=== PATIENT | male | born 1970 | race Caucasian/White ===

== ENCOUNTER 2018-09-09 09:50 | Emergency (ER) | payer BC ==
[~2018-09-09] VITALS: Ht 177.8 cm; Wt 86.2 kg
[~2018-09-09 09:50] MED LIST: AMPH30TA2 PO; CIPR-226 PO; CIPR500T78 PO; HUMARA SQ; INSASP10V SQ; METH20TA PO; ONDA4TAB8 PO; PHEN200T27 PO; SRTR100T PO; SUBUTEX PO; TORADOL PO
[2018-09-09] MEDS ORDERED: NS IV 1000 ML 1,000 ML IV SCH (10:24)
[2018-09-09] MEDS ORDERED: PROCHLORPERAZINE 10 MG/2ML INJ (COMPAZINE) IV ONE (10:30)
[2018-09-09] MEDS ORDERED: KETOROLAC 30 MG/ML VIAL IVP ONE (10:30)
[2018-09-09] MEDS ORDERED: diphenhydrAMINE 50 MG/ML INJ (BENADRYL) IVP ONE (10:30)
[2018-09-09] MEDS ORDERED: ORPHENADRINE 60 MG/2 ML (NORFLEX) AMP IM ONE (10:30)
[2018-09-09] MEDS ORDERED: ACETAMINOPHEN 325 MG TABLET PO ONE (10:30)
--- NOTE | 2018-09-09 11:41 | Diagnostic Imaging Report ---
PROCEDURE: CT head without contrast. TECHNIQUE: Multiple contiguous axial images were obtained through the brain without the use of intravenous contrast. Auto Exposure Controls were utilized during the CT exam to meet ALARA standards for radiation dose reduction. INDICATION: Lethargy and associated neck pain. FINDINGS: Ventricles and sulci are within normal limits for size. There is no intracranial hemorrhage identified. There is no abnormal mass effect or shift of midline structures. IMPRESSION: Unremarkable CT of the head. Dictated by: Dictated on workstation # [id number]
--- NOTE | 2018-09-09 11:42 | Diagnostic Imaging Report ---
INDICATION: Cough. COMPARISON: None. FINDINGS: Frontal and lateral radiographic views of the chest were obtained and show patchy bibasilar opacities, right greater than left. There is no large effusion or pneumothorax. Cardiac silhouette and pulmonary vasculature are within normal limits. Osseous structures show no gross acute abnormalities. IMPRESSION: 1. Bibasilar alveolar opacities concerning for pneumonia, right greater than left. Followup to resolution is recommended. Dictated by: Dictated on workstation # [id number]
[2018-09-09 11:43] LABS: CHLORIDE 96 MMOL/L (98-107); POTASSIUM 3.6 MMOL/L (3.6-5.0); SODIUM 138 MMOL/L (135-145)
[2018-09-09 11:44] LABS: ALANINE AMINOTRANSFERASE 28 U/L (0-55); ALBUMIN 3.9 GM/DL (3.2-4.5); ALKALINE PHOSPHATASE 51 U/L (40-136); BILIRUBIN,TOTAL 0.7 MG/DL (0.1-1.0); BUN/CREATININE RATIO 9; CALCIUM 8.9 MG/DL (8.5-10.1); CREATININE SERUM 0.96 MG/DL (0.60-1.30); GFR ESTIMATED > 60; GLUCOSE 126 MG/DL (70-105); TOTAL PROTEIN 6.7 GM/DL (6.4-8.2)
[2018-09-09 11:45] LABS: CARBON DIOXIDE 33 MMOL/L (21-32)
[2018-09-09 11:46] LABS: BASOPHILS % (AUTO) 0 % (0-10); EOSINOPHILS % (AUTO) 0 % (0-10); HEMATOCRIT 40 % (40-54); HEMOGLOBIN 13.7 G/DL (13.3-17.7); LYMPHOCYTES # (AUTO) 0.8 X 10^3 (1.0-4.0); LYMPHOCYTES % (AUTO) 13 % (12-44); MEAN CORPUSCULAR HEMOGLOBIN 30 PG (25-34); MEAN CORPUSCULAR HGB CONC 34 G/DL (32-36); MEAN CORPUSCULAR VOLUME 88 FL (80-99); MONOCYTES % (AUTO) 14 % (0-12); NEUTROPHILS % (AUTO) 73 % (42-75); PLATELET COUNT 191 10^3/uL (130-400); RED CELL DISTRIBUTION WIDTH 12.1 % (10.0-14.5); WHITE BLOOD COUNT 6.8 10^3/uL (4.3-11.0)
--- NOTE | 2018-09-09 11:46 | ED General ---
General Chief Complaint: General Problems/Pain Stated Complaint: FALL; FEVER; NECK PAIN; NAUSEA; AMS Nursing Triage Note: Has had vague symptoms for the past two weeks of increased lethargy, sleepiness and neck pain. Has had a low fever for the past two days. Temp was 100.1 at home. reports that he seems to be confused and has been "blacking out" frequently. Has hx of narcolepsy. Nursing Sepsis Screen: No Definite Risk History of Present Illness Date Seen by Provider: Sep 09, 2018 Time Seen by Provider: 09:50 Initial Comments The patient is a 48-year-old male with a history of insulin-dependent diabetes, narcolepsy on Vyvanse, history of prior narcotic abuse on daily buprenorphine, Crohn's disease on Humira until about 5-6 months ago when this was discontinued due to some dermatologic issues. Patient presents with acute worsening of the number of chronic issues. Patient and his state that over at least the last 6 months, that he has had persistent waxing and waning daytime fatigue and lethargy which eventually became so severe that he was placed on Vyvanse by his primary care physician and ultimately lost his job as he could not stay awake at work. More recently, over the past few weeks, he has started to have additional seemingly constitutional symptoms including intermittent gradual-onset headaches, dyspnea with exertion, lightheadedness with ambulation with occasional syncopal episodes not sustaining any injury, episodes of mild confusion and significant malaise, along with a persistent nonproductive cough. states that the patient has lost significant weight without attempting to. Patient has reportedly been to see his primary care physician a number of times for this issue and has had testing done which has not been revealing in the past. His symptoms have primarily been attributed to depression in the recent past as per his . All of the patient's symptoms have continued to get worse and most recently he has noticed some intermittent fevers at home, although is afebrile today in the emergency department. Patient has a flat affect and appears quite fatigued. He denies vomiting, hematemesis, hematochezia, melena, mik chest pain, abdominal pain, flank pain, back pain, dysuria or hematuria, diarrhea or constipation. Allergies and Home Medications Allergies Coded Allergies: No Known Drug Allergies (Verified , 09/09/18) Home Medications Amphet Asp/Amphet/D-Amphet 30 Mg Tablet, 30 MG PO BID, (Reported) Ciprofloxacin HCl 250 Mg Tablet, 250 MG PO BID Prescribed by: RANDY WELLINGTON on 06/17/14 1253 Insulin Human Lispro 100 U/Ml Vial, 1 UNITS SQ PRN PRN for ELEVATED CBG, (Reported) Ondansetron 4 Mg/Udtablet Tab.rapdis, 4 MG PO Q8H PRN for NAUSEA, (Reported) Phenazopyridine Hcl 200 Mg Tablet, 1 EACH PO TID PRN Prescribed by: RANDY WELLINGTON on 06/17/14 1253 Sertraline Hcl 100 Mg Tablet, 1 TAB PO DAILY, (Reported) [Humara] , 40 MG SQ BI-WEEKLY, (Reported) [Subutex] , 8 MG PO DAILY, (Reported) [Toradol] , 60 MG PO Q6H PRN for PAIN, (Reported) Patient Home Medication List Home Medication List Reviewed: Yes Review of Systems Review of Systems Constitutional: see HPI All Other Systems Reviewed Negative Unless Noted: Yes Past Qqmdgsv-Biajdi-Uxkbzx Hx Past Med/Social Hx: Reviewed Nursing Past Med/Soc Hx Patient Social History Alcohol Use: Denies Use Recreational Drug Use: No 2nd Hand Smoke Exposure: No Recent Foreign Travel: No Contact w/Someone Who Travel: No Recent Infectious Disease Expo: No Recent Hopitalizations: No Immunizations Up To Date Date of Pneumonia Vaccine: Jan 05, 2013 Date of Influenza Vaccine: Jan 05, 2013 Seasonal Allergies Seasonal Allergies: No Past Medical History Surgeries: Yes (LEFT STONE; hand surgery) Gallbladder, Orthopedic Respiratory: No Cardiac: Yes High Cholesterol Neurological: Yes (narcolepsy) Reproductive Disorders: No Sexually Transmitted Disease: No Gastrointestinal: Yes (bleeding ulcer, CROHNS) Musculoskeletal: No Endocrine: Yes Cancer: No Psychosocial: Yes Depression Integumentary: No Blood Disorders: No Family Medical History Reviewed Nursing Family Hx Physical Exam Vital Signs Vital Signs - First Documented 09/09/18 09:59 Temp 97.6 Pulse 70 Resp 12 B/P (MAP) 113/62 (79) Pulse Ox 95 Capillary Refill : Less Than 3 Seconds Height, Weight, BMI Height: 5'10.00" Weight: 190lbs. oz. 86.907995zm; BMI Method:Stated General Appearance: No Apparent Distress Comments This is a middle-aged male appearing mildly ill, but nontoxic and in no significant distress. Head is normocephalic and atraumatic. Neck is supple and with some mild tenderness at the base of the neck without any significant pain with full ranging of the neck and without any meningismus, oropharynx is mildly tacky, no cervical LAD appreciated, lungs with crackles noted bilaterally, worse in the bilateral bases. There is good air movement bilaterally and the patient is speaking comfortably in full sentences and not using accessory musculature to breathe. There is a normal S1 and S2 without murmurs, rubs or gallops and capillary refill is appropriate, less than 2 seconds globally. Abdomen is soft, nontender nondistended. Skin is warm and dry without cyanosis, clubbing or edema. Psychiatrically, the patient is alert and has a very flat affect. From a neurologic standpoint, cranial nerves II-XII are intact and there are no lateralizing deficits noted. Speech is normal, playing which is normal. Coordination is normal. There is no dysmetria with aztqqg-lz-nbqm or nuck-sz-quqe bilaterally. Strength is 5 out of 5 in all joints of bilateral upper and lower extremities. Sensation is intact to light touch in bilateral upper and lower extremities. The patient ambulates with a narrow, steady gait. He is alert and oriented 4. Progress/Results/Core Measures Suspected Sepsis Recent Fever Within 48 Hours: Yes Infection Criteria Present: None New/Unexplained Altered Menta: No Sepsis Screen: No Definite Risk SIRS Temperature:97.6 Pulse: 70 Respiratory Rate: 12 Laboratory Tests 09/09/18 10:56: White Blood Count 6.8 Blood Pressure 113 /62 Mean: 79 Laboratory Tests 09/09/18 10:56: Creatinine 0.96, Platelet Count 191, Total Bilirubin 0.7 Results/Orders Lab Results Laboratory Tests Test 09/09/18 10:56 09/09/18 11:39 Range/Units White Blood Count 6.8 4.3-11.0 10^3/uL Red Blood Count 4.52 4.35-5.85 10^6/uL Hemoglobin 13.7 13.3-17.7 G/DL Hematocrit 40 40-54 % Mean Corpuscular Volume 88 80-99 FL Mean Corpuscular Hemoglobin 30 25-34 PG Mean Corpuscular Hemoglobin Concent 34 32-36 G/DL Red Cell Distribution Width 12.1 10.0-14.5 % Platelet Count 191 130-400 10^3/uL Mean Platelet Volume 9.0 7.4-10.4 FL Neutrophils (%) (Auto) 73 42-75 % Lymphocytes (%) (Auto) 13 12-44 % Monocytes (%) (Auto) 14 H 0-12 % Eosinophils (%) (Auto) 0 0-10 % Basophils (%) (Auto) 0 0-10 % Neutrophils # (Auto) 5.0 1.8-7.8 X 10^3 Lymphocytes # (Auto) 0.8 L 1.0-4.0 X 10^3 Monocytes # (Auto) 1.0 0.0-1.0 X 10^3 Eosinophils # (Auto) 0.0 0.0-0.3 10^3/uL Basophils # (Auto) 0.0 0.0-0.1 10^3/uL Sodium Level 138 135-145 MMOL/L Potassium Level 3.6 3.6-5.0 MMOL/L Chloride Level 96 L 98-107 MMOL/L Carbon Dioxide Level 33 H 21-32 MMOL/L Anion Gap 9 5-14 MMOL/L Blood Urea Nitrogen 9 7-18 MG/DL Creatinine 0.96 0.60-1.30 MG/DL Estimat Glomerular Filtration Rate > 60 BUN/Creatinine Ratio 9 Glucose Level 126 H 70-105 MG/DL Calcium Level 8.9 8.5-10.1 MG/DL Corrected Calcium 9.0 8.5-10.1 MG/DL Total Bilirubin 0.7 0.1-1.0 MG/DL Aspartate Amino Transf (AST/SGOT) 26 5-34 U/L Alanine Aminotransferase (ALT/SGPT) 28 0-55 U/L Alkaline Phosphatase 51 40-136 U/L Troponin T 15 <=15 NG/L Pro-B-Type Natriuretic Peptide 162.1 H <75.0 PG/ML Total Protein 6.7 6.4-8.2 GM/DL Albumin 3.9 3.2-4.5 GM/DL Serum Alcohol < 10 <10 MG/DL Urine Color MALAIKA H Urine Clarity CLEAR Urine pH 6.0 5-9 Urine Specific Diagonal >=1.030 1.016-1.022 Urine Protein 1+ H NEGATIVE Urine Glucose (UA) NEGATIVE NEGATIVE Urine Ketones 1+ H NEGATIVE Urine Nitrite NEGATIVE NEGATIVE Urine Bilirubin 2+ H NEGATIVE Urine Urobilinogen 1.0 NORMAL MG/DL Urine Leukocyte Esterase NEGATIVE NEGATIVE Urine RBC (Auto) NEGATIVE NEGATIVE Urine RBC NONE /HPF Urine WBC 2-5 /HPF Urine Squamous Epithelial Cells 5-10 /HPF Urine Crystals PRESENT H /LPF Urine Amorphous Sediment FEW DAYAN URATES H /LPF Urine Bacteria NEGATIVE /HPF Urine Casts NONE /LPF Urine Mucus LARGE H /LPF Urine Culture Indicated NO Urine Opiates Screen NEGATIVE NEGATIVE Urine Oxycodone Screen NEGATIVE NEGATIVE Urine Methadone Screen NEGATIVE NEGATIVE Urine Propoxyphene Screen NEGATIVE NEGATIVE Urine Barbiturates Screen NEGATIVE NEGATIVE Ur Tricyclic Antidepressants Screen NEGATIVE NEGATIVE Urine Phencyclidine Screen NEGATIVE NEGATIVE Urine Amphetamines Screen POSITIVE H NEGATIVE Urine Methamphetamines Screen NEGATIVE NEGATIVE Urine Benzodiazepines Screen NEGATIVE NEGATIVE Urine Cocaine Screen NEGATIVE NEGATIVE Urine Cannabinoids Screen NEGATIVE NEGATIVE My Orders Orders - DONNA TREVINO MD Cbc With Automated Diff (09/09/18 10:24) Comprehensive Metabolic Panel (09/09/18 10:24) Troponin T (09/09/18 10:24) Probnp Fs (09/09/18 10:24) Chest Pa/Lat (2 View) (09/09/18 10:24) Ekg Tracing (09/09/18 10:24) Ua Culture If Indicated (09/09/18 10:24) Drug Screen Stat (Urine) (09/09/18 10:24) Alcohol (09/09/18 10:24) Ct Head Wo (09/09/18 10:24) Ed Iv/Invasive Line Start (09/09/18 10:24) Ns Iv 1000 Ml (Sodium Chloride 0.9%) (09/09/18 10:24) Diphenhydramine Injection (Benadryl Inje (09/09/18 10:30) Prochlorperazine Injection (Compazine In (09/09/18 10:30) Orphenadrine Injection (Norflex Injectio (09/09/18 10:30) Ketorolac Injection (Toradol Injection) (09/09/18 10:30) Acetaminophen Tablet/Caplet (Tylenol T (09/09/18 10:30) Creatine Kinase (09/09/18 10:56) Free T4 (Free Thyroxine) (09/09/18 10:56) Thyroid Stimulating Hormone (09/09/18 10:56) Sputum Culture (09/09/18 12:01) Blood Culture (09/09/18 12:01) Blood Culture (09/09/18 12:01) Medications Given in ED Current Medications Medications Dose Ordered Sig/Oziel Route Start Time Stop Time Status Last Admin Dose Admin Acetaminophen 975 mg ONCE ONCE PO 09/09/18 10:30 09/09/18 10:31 DC 09/09/18 11:09 975 MG Diphenhydramine HCl 12.5 mg ONCE ONCE IVP 09/09/18 10:30 09/09/18 10:31 DC 09/09/18 11:08 12.5 MG Ketorolac Tromethamine 30 mg ONCE ONCE IVP 09/09/18 10:30 09/09/18 10:31 DC 09/09/18 11:09 30 MG Prochlorperazine Edisylate 10 mg ONCE ONCE IV 09/09/18 10:30 09/09/18 10:31 DC 09/09/18 11:09 10 MG Vital Signs/I&O 09/09/18 09:59 Temp 97.6 Pulse 70 Resp 12 B/P (MAP) 113/62 (79) Pulse Ox 95 Capillary Refill : Less Than 3 Seconds Blood Pressure Mean: 79 Progress Note : Time: 12:22 Progress Note Results of large workup are as above, generally without significant evidence of acute process aside from mild BNP elevation as well as fairly marked bibasilar pulmonary infiltrates. In the setting of the patient's other constitutional symptoms by history, which have been present for 6 months or more, as well as prior use of Humira and immunosuppression due to DM, multifocal infiltrates certainly raise concern for atypical infection including tuberculosis. I feel the patient will also benefit from further investigation of his cardiac function and rule-out of pulmonary or other malignancy. We will therefore proceed with an admission. Patient and family request [facility] which I feel is an appropriate choice given tertiary-level resources and infectious diseases coverage. Will contact [facility] transfer center for admission. Update [id number]: [facility] has accepted patient; pending accepting physician name. Have drawn blood and basic sputum cx; will hold off on antibiotics for CAP as I do not feel this is likely given the overall clinical picture and would prefer to avoid antibiotics until the patient is evaluated and cultured appropriately at the receiving facility. Update 1314: Patient graciously accepted for admission by Dr. Smackover. ECG Comment Sinus rhythm, rate 68, no acute ST elevation or depression, MA 165, QRS 90, QTc 407, EP interpretation. Diagnostic Imaging Comments INDICATION: Cough. COMPARISON: None. FINDINGS: Frontal and lateral radiographic views of the chest were obtained and show patchy bibasilar opacities, right greater than left. There is no large effusion or pneumothorax. Cardiac silhouette and pulmonary vasculature are within normal limits. Osseous structures show no gross acute abnormalities. IMPRESSION: 1. Bibasilar alveolar opacities concerning for pneumonia, right greater than left. Followup to resolution is recommended. Dictated on workstation # [id number] CT HEAD WO PROCEDURE: CT head without contrast. TECHNIQUE: Multiple contiguous axial images were obtained through the brain without the use of intravenous contrast. Auto Exposure Controls were utilized during the CT exam to meet ALARA standards for radiation dose reduction. INDICATION: Lethargy and associated neck pain. FINDINGS: Ventricles and sulci are within normal limits for size. There is no intracranial hemorrhage identified. There is no abnormal mass effect or shift of midline structures. IMPRESSION: Unremarkable CT of the head. Dictated on workstation # [id number] Departure Impression Primary Impression: Multifocal pneumonia Additional Impressions: Bilateral pulmonary infiltrates on chest x-ray Elevated brain natriuretic peptide (BNP) level Weight loss, unintentional Fatigue Qualified Codes: R53.83 - Other fatigue Nonproductive cough Disposition: XF [facility] Condition: Stable Departure-Patient Inst. Referrals: WENDI VERA DO (PCP/Family) Primary Care Physician DONNA TREVINO MD Sep 09, 2018 11:46
[2018-09-09] MEDS ORDERED: GABA-488 (11:56)
[2018-09-09] MEDS ORDERED: BUPR8TAB (11:56)
[2018-09-09] MEDS ORDERED: LISD70CA3 (11:56)
[2018-09-09 12:21] LABS: AMPHETAMINE SCREEN, URINE POSITIVE (NEGATIVE); BENZODIAZEPINES SCREEN URINE NEGATIVE (NEGATIVE); COCAINE SCREEN URINE NEGATIVE (NEGATIVE)
[2018-09-09 12:22] LABS: BARBITURATE SCREEN URINE NEGATIVE (NEGATIVE); CANNABINOID SCREEN, URINE NEGATIVE (NEGATIVE); METHADONE STAT NEGATIVE (NEGATIVE); METHAMPHETAMINE SCREEN URINE S NEGATIVE (NEGATIVE); OPIATE SCREEN URINE NEGATIVE (NEGATIVE); OXYCODONE STAT NEGATIVE (NEGATIVE); PROPOXYPHENE STAT NEGATIVE (NEGATIVE); TRICYCLIC ANTIDEPRESSANTS SCRE NEGATIVE (NEGATIVE)
[2018-09-09 12:34] LABS: CLARITY,URINE CLEAR; COLOR,URINE AMBER; GLUCOSE, URINE (UA) NEGATIVE (NEGATIVE); KETONES,URINE 1+ (NEGATIVE); NITRITE,URINE NEGATIVE (NEGATIVE); PROTEIN,URINE 1+ (NEGATIVE)
[2018-09-09 12:35] LABS: BACTERIA,URINE NEGATIVE /HPF; BILIRUBIN,URINE 2+ (NEGATIVE); LEUKOCYTE ESTERASE ,URINE NEGATIVE (NEGATIVE)
[2018-09-09 12:36] LABS: AMORPHOUS SEDIMENT,UR FEW AMOR URATES /LPF
[2018-09-09 13:15] VITALS: BP 106/64
[2018-09-09 15:09] LABS: FREE T4 (FREE THYROXINE) 0.98 NG/DL (0.70-1.48)
== END 2018-09-09 13:40 | disposition short-term general hospital (02) ==
LOC: EDUNIT# 09:50 → ER FS 09:52
DX: J18.9 Pneumonia, unspecified organism (principal); R79.89 Other specified abnormal findings of blood chemistry; R53.83 Other fatigue; R63.4 Abnormal weight loss; E11.9 Type 2 diabetes mellitus without complications; E78.00 Pure hypercholesterolemia, unspecified; F32.9 Major depressive disorder, single episode, unspecified; Z87.19 Personal history of other diseases of the digestive system; Z79.4 Long term (current) use of insulin; Z98.890 Other specified postprocedural states
CPT/HCPCS: 36415; 70450; 71046; 80053; 80306; 80320; 81000; 82550; 83880; 84439; 84443; 84484; 85025; 87040; 93005; 96361; 96374; 96375

== ENCOUNTER → 2022-09-06 | Outpatient (CLI) | payer BC ==
[~2022-09-06] MED LIST changes: +BUPR8TAB; +GABA-488; +LISD70CA3
[2022-09-06 17:49] LABS: BASOPHILS % (AUTO) 0 % (0-10); EOSINOPHILS % (AUTO) 0 % (0-10); HEMATOCRIT 44 % (40-54); HEMOGLOBIN 15.2 g/dL (13.3-17.7); LYMPHOCYTES # (AUTO) 1.4 10^3/uL (1.0-4.0); LYMPHOCYTES % (AUTO) 17 % (12-44); MEAN CORPUSCULAR HEMOGLOBIN 30 pg (25-34); MEAN CORPUSCULAR HGB CONC 35 g/dL (32-36); MEAN CORPUSCULAR VOLUME 86 fL (80-99); MEAN PLATELET VOLUME 8.9 fL (9.0-12.2); MONOCYTES # (AUTO) 0.4 10^3/uL (0.0-1.0); MONOCYTES % (AUTO) 5 % (0-12); NEUTROPHILS # (AUTO) 6.4 10^3/uL (1.8-7.8); NEUTROPHILS % (AUTO) 77 % (42-75); PLATELET COUNT 295 10^3/uL (130-400); WHITE BLOOD COUNT 8.3 10^3/uL (4.3-11.0)
[2022-09-06 18:08] LABS: ERYTHROCYTE SEDIMENTATION RATE 16 MM/HR (0-30)
[2022-09-06 18:09] LABS: ALANINE AMINOTRANSFERASE 27 U/L (0-55); ALBUMIN 4.2 GM/DL (3.2-4.5); ALKALINE PHOSPHATASE 68 U/L (40-136); BILIRUBIN,TOTAL 0.7 MG/DL (0.1-1.0); BUN/CREATININE RATIO 15; CALCIUM 9.9 MG/DL (8.5-10.1); CARBON DIOXIDE 27 MMOL/L (21-32); CHLORIDE 102 MMOL/L (98-107); CREATININE SERUM 0.88 MG/DL (0.60-1.30); GFR ESTIMATED 104; GLUCOSE 122 MG/DL (70-105); POTASSIUM 4.6 MMOL/L (3.6-5.0); SODIUM 140 MMOL/L (135-145); TOTAL PROTEIN 7.5 GM/DL (6.4-8.2)
== END ==
LOC: LAB FS 17:30
PROVIDERS: ATTEND Nurse Practitioner Family
DX: K50.919 Crohn's disease, unspecified, with unspecified complications (principal)
CPT/HCPCS: 36415; 80053; 85025; 85652; 86141